=== PATIENT | female | born 1940 | race Caucasian/White ===

== ENCOUNTER → 2018-11-23 | Outpatient (CLI) | payer OTHER | LOC: HYPER 06:47 | DX: L89.312 Pressure ulcer of right buttock, stage 2 (principal); L89.323 Pressure ulcer of left buttock, stage 3; I11.0 Hypertensive heart disease with heart failure; I50.9 Heart failure, unspecified; E78.5 Hyperlipidemia, unspecified; E66.01 Morbid (severe) obesity due to excess calories; R39.81 Functional urinary incontinence; R26.2 Difficulty in walking, not elsewhere classified; R26.89 Other abnormalities of gait and mobility; R54 Age-related physical debility ==

== ENCOUNTER → 2018-12-07 | Outpatient (CLI) | payer OTHER | LOC: HYPER 06:30 | DX: L89.323 Pressure ulcer of left buttock, stage 3 (principal); L89.312 Pressure ulcer of right buttock, stage 2; E66.01 Morbid (severe) obesity due to excess calories; I11.0 Hypertensive heart disease with heart failure; I50.9 Heart failure, unspecified; E78.5 Hyperlipidemia, unspecified; R26.2 Difficulty in walking, not elsewhere classified; R39.81 Functional urinary incontinence; R54 Age-related physical debility; R26.89 Other abnormalities of gait and mobility; Z68.42 Body mass index [BMI] 45.0-49.9, adult ==

== ENCOUNTER → 2019-01-04 | Outpatient (CLI) | payer OTHER | LOC: HYPER 06:41 | DX: L89.323 Pressure ulcer of left buttock, stage 3 (principal); I11.0 Hypertensive heart disease with heart failure; I50.9 Heart failure, unspecified; E66.01 Morbid (severe) obesity due to excess calories; E78.5 Hyperlipidemia, unspecified; R26.89 Other abnormalities of gait and mobility; R54 Age-related physical debility; R26.2 Difficulty in walking, not elsewhere classified; R39.81 Functional urinary incontinence; Z68.42 Body mass index [BMI] 45.0-49.9, adult ==

== ENCOUNTER → 2019-01-25 | Outpatient (CLI) | payer OTHER | LOC: HYPER 06:46 | DX: L89.323 Pressure ulcer of left buttock, stage 3 (principal); R26.89 Other abnormalities of gait and mobility; E66.01 Morbid (severe) obesity due to excess calories; E78.5 Hyperlipidemia, unspecified; R39.81 Functional urinary incontinence; H40.9 Unspecified glaucoma; I11.0 Hypertensive heart disease with heart failure; I50.9 Heart failure, unspecified; Z68.42 Body mass index [BMI] 45.0-49.9, adult ==

== ENCOUNTER → 2019-02-22 | Outpatient (CLI) | payer OTHER | LOC: HYPER 15:57 | DX: L89.323 Pressure ulcer of left buttock, stage 3 (principal); I11.0 Hypertensive heart disease with heart failure; I50.9 Heart failure, unspecified; E78.5 Hyperlipidemia, unspecified; E66.01 Morbid (severe) obesity due to excess calories; R54 Age-related physical debility; R26.89 Other abnormalities of gait and mobility; R26.2 Difficulty in walking, not elsewhere classified; R39.81 Functional urinary incontinence; Z68.42 Body mass index [BMI] 45.0-49.9, adult ==